=== PATIENT | female | born 1965 | race Caucasian/White ===

== ENCOUNTER → 2016-08-12 | Outpatient (CLI) | payer OTHER | END | disposition disaster alternative care site (69) | LOC: GLAB 08-10 13:49 | DX: Z12.31 Encounter for screening mammogram for malignant neoplasm of breast (principal); E03.9 Hypothyroidism, unspecified | CPT/HCPCS: G0202 ==

== ENCOUNTER → 2016-09-22 | Outpatient (CLI) | payer OTHER ==
[2016-09-22 11:22] LABS: BASOPHIL # 0.1 K/uL (0.0-0.2); BASOPHIL % 1.9 %; EOSINOPHIL # 0.5 K/uL (0.0-0.5); EOSINOPHIL % 6.8 %; HEMATOCRIT 44.9 % (33.0-46.0); HEMOGLOBIN 14.5 g/dL (10.0-15.0); IMMATURE GRANULOCYTE % 0.3 %; LYMPHOCYTE # 1.7 K/uL (0.8-4.0); LYMPHOCYTE % 22.8 %; MCHC 32.3 gm/dL (32.0-36.5); MONOCYTE # 0.7 K/uL (0.0-1.0); MPV 9.7 fl (9.4-12.4); NEUTROPHIL # (ANC) 4.4 K/uL (1.8-7.8); NEUTROPHIL % 59.2 %; NRBC % 0 /100WBC (0-0.00); PLATELET COUNT 342 K/uL (150-450); RBC 4.83 M/uL (3.50-5.50); RDW-CV 11.9 % (11.9-14.6); WBC 7.4 K/uL (4.0-11.0)
== END | disposition disaster alternative care site (69) ==
LOC: GLAB 09-21 08:00
PROVIDERS: Obstetrics & Gynecology
DX: Z13.0 Encounter for screening for diseases of the blood and blood-forming organs and certain disorders involving the immune mechanism (principal); E03.9 Hypothyroidism, unspecified

== ENCOUNTER → 2017-02-02 | Outpatient (CLI) | payer OTHER ==
[2017-02-02 13:49] LABS: BASOPHIL # 0.1 K/uL (0.0-0.2); BASOPHIL % 1.7 %; EOSINOPHIL # 0.4 K/uL (0.0-0.5); EOSINOPHIL % 4.9 %; HEMATOCRIT 44.4 % (33.0-46.0); HEMOGLOBIN 14.6 g/dL (10.0-15.0); IMMATURE GRANULOCYTE % 0.2 %; LYMPHOCYTE # 2.1 K/uL (0.8-4.0); LYMPHOCYTE % 25.9 %; MCH 30.1 pg (27.0-34.0); MCHC 32.9 gm/dL (32.0-36.5); MCV 91.5 fl (83.0-98.0); MONOCYTE # 0.7 K/uL (0.0-1.0); MONOCYTE % 8.6 %; NEUTROPHIL # (ANC) 4.7 K/uL (1.8-7.8); NEUTROPHIL % 58.7 %; NRBC % 0 /100WBC (0-0.00); PLATELET COUNT 379 K/uL (150-450); RBC 4.85 M/uL (3.50-5.50); RDW-CV 12.2 % (11.9-14.6); WBC 8.1 K/uL (4.0-11.0)
[2017-02-02 14:14] LABS: ALBUMIN 3.6 gm/dL (3.5-5.0); ALK PHOS 51 IU/L (33-138); ALT 25 IU/L (12-78); AST 23 IU/L (10-40); BLOOD UREA NITROGEN 13 mg/dL (6-24); CALCIUM 9.1 mg/dL (8.5-10.5); CHLORIDE 106 mMol/L (96-110); CO2 31 mMol/L (22-32); CPK 163 IU/L (21-215); CREATININE 0.7 mg/dL (0.5-1.1); SODIUM 141 mMol/L (135-145); TOTAL BILIRUBIN 0.7 mg/dL (0.0-1.5); TOTAL PROTEIN 7.6 g/dL (6.0-8.4)
== END | disposition disaster alternative care site (69) ==
LOC: GLAB 01-28 14:55
PROVIDERS: Psychiatry & Neurology Neurology
DX: M79.669 Pain in unspecified lower leg (principal)